=== PATIENT | male | born 2000 | race Caucasian/White ===

== ENCOUNTER → 2024-09-02 09:05 | Outpatient (BNVA) | payer BC, MEDICAID, SELFPAY | PROVIDERS: PCP Nurse Practitioner; Visit Provider Nurse Practitioner | DX: F32.A Depression, unspecified (principal) | CPT/HCPCS: 80053; 80164; 80201; 84443; 85025 ==

== ENCOUNTER → 2024-11-20 08:36 | Outpatient (BNVA) | payer OTHER, SELFPAY | PROVIDERS: PCP Nurse Practitioner; Visit Provider Psychiatry & Neurology Psychiatry | DX: F33.1 Major depressive disorder, recurrent, moderate (principal) | CPT/HCPCS: 80061; 83036 ==

== ENCOUNTER → 2025-03-28 09:44 | Outpatient (BNVA) | payer BC, MEDICAID, SELFPAY ==
[2024-11-22 13:12] VITALS: BP 111/67; BMI 21.9
== END ==
PROVIDERS: PCP Nurse Practitioner; Visit Provider Nurse Practitioner
DX: F70 Mild intellectual disabilities (principal)
CPT/HCPCS: 80164

== ENCOUNTER → 2025-04-02 07:55 | Outpatient (BNVA) | payer BC, SELFPAY ==
[2024-11-22 13:12] VITALS: BP 111/67; BMI 21.9
== END ==
PROVIDERS: PCP Nurse Practitioner; Visit Provider Nurse Practitioner
DX: Z51.81 Encounter for therapeutic drug level monitoring (principal); Z79.899 Other long term (current) drug therapy
CPT/HCPCS: 80164

== ENCOUNTER 2025-06-18 07:13 | Outpatient (CLI) | payer BC, MEDICAID, SELFPAY ==
[2024-11-22 13:12] VITALS: BP 111/67; BMI 21.9
--- NOTE | 2025-06-18 08:30 | USCV_ITS ---
Tesfaye Mi Age: 25 Gender: M : 2000 Exam Date: 06/18/2025 08:18 Ordering Phys: Pattie Tobin Technologist: Exam Location: [facility] – [place] Indication: murmur sob BP: 120 / 70 HR: 71 Rhythm: Sinus Technical Quality: Adequate MEASUREMENTS (Male / Female) Normal Values 2D ECHO LV Diastolic Diameter PLAX 4.0 cm 4.2 - 5.9 / 3.9 - 5.3 cm IVS Diastolic Thickness 1.1 cm 0.6 - 1.0 / 0.6 - 0.9 cm IVS Systolic Thickness 1.4 cm LVPW Diastolic Thickness 1.2 cm 0.6 - 1.0 / 0.6 - 0.9 cm LVPW Systolic Thickness 1.5 cm LVOT Diameter 1.5 cm LV Ejection Fraction 2D Teich 67.7 % LV Ejection Fraction MOD 4C 69.2 % LV Ejection Fraction MOD 2C 65.0 % LV Ejection Fraction 2C AL 65.4 % LA Diameter 2.4 cm RA Systolic Volume 4C AL 20.1 ml RA Systolic Volume 4C MOD 19.7 ml M-MODE LA Ao Ratio MM 1.4 AV Cusp Separation MM 2.9 cm DOPPLER AV Peak Velocity 135.0 cm/s LVOT Peak Velocity 112.0 cm/s AV Area Cont Eq vti 1.8 cm squared AV Area Cont Eq pk 1.5 cm squared MV Peak Velocity 136.0 cm/s MV Area PHT 3.9 cm squared Mitral E to A Ratio 1.5 TV Peak Velocity 196.0 cm/s TR Peak Velocity 243.0 cm/s TR Peak Gradient 23.6 mmHg PV Peak Velocity 104.0 cm/s FINDINGS Left Ventricle Normal left ventricular size, systolic function and wall thickness, with no regional wall motion abnormalities. EF is 60- 65%. Right Ventricle Normal right ventricular size and systolic function. Right Atrium Normal right atrial size. Left Atrium Normal left atrial size. Mitral Valve Structurally normal mitral valve. Trace mitral valve regurgitation. Aortic Valve Structurally normal aortic valve. No aortic valve stenosis. Mild aortic regurgitation. Tricuspid Valve Mild tricuspid valve regurgitation. Pulmonary artery systolic pressure is normal Pulmonic Valve Not well visualized Pericardium Normal Aorta Normal in size IVC Not well visualized. CONCLUSIONS LV systolic function is normal with EF of 60-65% Trace mitral valve regurgitation. Mild aortic regurgitation. Mild tricuspid valve regurgitation. No comparison studies are available. Isrrael Prasad MD (Electronically Signed) Final Date: 20 June 2025 14:20 S
== END 2025-06-18 07:14 | disposition home or self-care (01) ==
LOC: RAD 07:13
PROVIDERS: PCP Nurse Practitioner; Visit Provider Nurse Practitioner
DX: Q92.8 Other specified trisomies and partial trisomies of autosomes (principal); I35.1 Nonrheumatic aortic (valve) insufficiency; I07.1 Rheumatic tricuspid insufficiency
CPT/HCPCS: 93306

== ENCOUNTER → 2025-08-04 07:44 | Outpatient (BNVA) | payer BC, SELFPAY ==
[2024-11-22 13:12] VITALS: BP 111/67; BMI 21.9
== END ==
PROVIDERS: PCP Nurse Practitioner; Visit Provider Psychiatry & Neurology Psychiatry
DX: Z79.899 Other long term (current) drug therapy (principal)
CPT/HCPCS: 80053; 80164; 85025